=== PATIENT | male | born 1960 | race Caucasian/White ===

== ENCOUNTER → 2019-07-09 13:28 | Outpatient (CLI) | payer BC, SELFPAY ==
[2019-07-09 14:38] LABS: Basophils # 0.1 K/mm3 (0-0.2); Basophils % 0.7 % (0.1-2.0); Eosinophils # 0.2 K/mm3 (0.0-0.4); Eosinophils % 1.6 % (0.1-12.0); Hemoglobin 15.7 g/dL (14.1-18.0); Lymphocytes # 2.2 K/mm3 (0.7-4.5); Lymphocytes % 23.5 % (10-50); Mean Corpuscular HGB Conc 30.7 g/dL (31.8-35.4); Mean Corpuscular Hemoglobin 30.2 pg (27.0-31.2); Mean Corpuscular Volume 98.1 fl (80-94); Mean Platelet Volume 9.5 fl (7.4-10.4); Monocytes # 0.6 K/mm3 (0.1-1.0); Monocytes % 6.5 % (1.7-9.3); Neutrophils # 6.4 K/mm3 (1.8-7.8); Neutrophils % 67.6 % (37.0-80.0); Platelet Count 317 K/mm3 (142-424); Red Blood Count 5.19 M/mm3 (4.60-6.20); Red Cell Distribution Width 14.1 % (11.5-17.5); White Blood Count 9.5 K/mm3 (4.8-10.8)
[2019-07-09 15:09] LABS: Alanine Aminotransferase 31 U/L (12-78); Albumin/Globulin Ratio 1.2 (1.1-1.8); Alkaline Phosphatase 96 U/L (46-116); Anion Gap 12.8 mEq/L (5-15); Aspartate Amino Transferase 20 U/L (15-37); Bilirubin,Total 0.3 mg/dL (0.2-1.0); Blood Urea Nitrogen 28 mg/dL (7-18); Calcium 9.3 mg/dL (8.5-10.1); Carbon Dioxide 29 mmol/L (21.0-32.0); Chloride 106 mmol/L (98-107); Creatinine,Serum 1.08 mg/dL (0.70-1.30); Estimated Glomerular Filt Rate 70 ml/min (>60); Free T4 (Free Thyroxine) 0.91 ng/dl (0.76-1.46); GFR (African American) 85 ML/MIN (>60); Globulin 3.3 gm/dl (1.3-3.2); Glucose 100 mg/dL (74-106); Potassium 4.8 mmoL/L (3.5-5.1); Sodium 143 mmol/L (136-145); Thyroid Stimulating Hormone 0.45 uIU/ml (0.358-3.740); Total Protein,Serum 7.3 gm/dL (6.4-8.2)
== END ==
PROVIDERS: Visit Provider Emergency Medicine
DX: J44.9 Chronic obstructive pulmonary disease, unspecified (principal)
CPT/HCPCS: 80053; 84439; 84443; 85025

== ENCOUNTER → 2019-11-28 12:23 | Outpatient (CLI) | payer BC, SELFPAY ==
--- NOTE | 2019-11-28 12:23 | CT_ITS ---
PROCEDURE: CT LUNG SCREENING CLINICAL INDICATION: personal history nicotine Eighty pack-year smoking history, asymptomatic for lung cancer COMPARISON: No exams were available for comparison TECHNIQUE: The exam was performed on a GE Light Speed [address] scanner using 2.90 mGy CTDI. A low dose helical CT CHEST was performed on a multi-detector scanner. All CT scans at the facility use one or more dose reduction, viz: automated exposure control, ma/kV adjustment per patient size (including targeted exams where dose is matched to indication, i.e. head), or iterative reconstruction technique. The LDCT was performed in a facility that meets the criteria for the screening program. Data regarding this exam was submitted to ACR which is an approved registry. The order for this exam indicates that it came as a result of a lung cancer screening counseling shard decision-making visit that included all the elements required of such a visit including smoking cessation. The radiologist interpreting this exam meets the [facility] criteria for the LDCT lung cancer screening program. The exam is reported using the Lung-RADS classification scale and reported to the ACR registry. NOTE: This study was performed for the specific purposes of lung cancer screening and is not an alternative to diagnostic chest CT. RADIATION DOSE: CTDI vol(CT dose Index-volume) = 2.90mG DLP (Dose Length Product) = 112.81 mGcm FINDINGS: COPD with centrilobular emphysema. Noncalcified 4 mm nodule superior segment right lower lobe image 47 series 4. There are few calcified granulomas. There are some scattered reticular opacities which are nonspecific subpleural 3 mm nodule noted left upper lobe image 31, left apex image 17, left upper lobe posteriorly at 4 mm image 19, 3 mm subpleural nodule left upper lobe image 32 OTHER FINDINGS: Coronary artery calcifications. Scattered small mediastinal lymph nodes. Exophytic isodense to the upper pole left kidney at 2.3 cm and may be due to a cyst. IMPRESSION: Lung rads category 2 benign. Recommend annual LDCT. Dictated by: Bairon Mora MD 12/01/2019 10:47 Electronically signed by Bairon Mora MD in [place] 12/01/2019 10:47
== END ==
PROVIDERS: PCP Emergency Medicine; Visit Provider Physician Assistant
DX: Z87.891 Personal history of nicotine dependence (principal); Z12.2 Encounter for screening for malignant neoplasm of respiratory organs

== ENCOUNTER → 2020-01-20 11:10 | Outpatient (CLI) | payer BC, SELFPAY ==
[2020-01-20 11:39] LABS: Basophils # 0.1 K/mm3 (0-0.2); Basophils % 0.8 % (0.1-2.0); Eosinophils # 0.2 K/mm3 (0.0-0.4); Hemoglobin 16.7 g/dL (14.1-18.0); Lymphocytes # 2.3 K/mm3 (0.7-4.5); Lymphocytes % 23.9 % (10-50); Mean Corpuscular HGB Conc 32.9 g/dL (31.8-35.4); Mean Corpuscular Hemoglobin 31.6 pg (27.0-31.2); Mean Corpuscular Volume 96.1 fl (80-94); Mean Platelet Volume 8.3 fl (7.4-10.4); Monocytes # 0.4 K/mm3 (0.1-1.0); Monocytes % 4.2 % (1.7-9.3); Neutrophils # 6.7 K/mm3 (1.8-7.8); Neutrophils % 69.1 % (37.0-80.0); Platelet Count 294 K/mm3 (142-424); Red Cell Distribution Width 13.5 % (11.5-17.5); White Blood Count 9.7 K/mm3 (4.8-10.8)
[2020-01-20 12:03] LABS: Troponin I < 0.01 ng/ml (0.00-0.034)
[2020-01-20 13:20] LABS: Anion Gap 14.5 mEq/L (5-15); Blood Urea Nitrogen 21 mg/dl (9-20); Calcium 9.7 mg/dl (8.4-10.2); Carbon Dioxide 28 mmol/L (22.0-30.0); Chloride 99 mmol/L (98-107); Estimated Glomerular Filt Rate 87 ml/min (>60); GFR (African American) 105 ML/MIN (>60); Glucose 101 mg/dl (74-100); Potassium 4.5 mmoL/L (3.5-5.1); Sodium 137 mmol/L (136-145)
== END ==
PROVIDERS: Visit Provider Nurse Practitioner Family
DX: I20.9 Angina pectoris, unspecified (principal); F17.200 Nicotine dependence, unspecified, uncomplicated
CPT/HCPCS: 36415; 80048; 84484; 85025

== ENCOUNTER 2020-01-28 08:54 | Day surgery (SDC) | payer BC, SELFPAY ==
[2020-01-28] VITALS (12 sets, daily range): BP systolic 110–187; BP diastolic 57–98; PULSE 67–92; RESP 16–20; TEMP 36.7; O2SAT 95–100; BMI 29.9
--- NOTE | 2020-01-28 | IR_ITS ---
APPROVED REPORT Patient Location: [facility] Economist: ANA MARÍA Anderson RT (R) PROCEDURES Left heart catheterization Left ventriculogram Selective coronary angiogram Drug-eluting stent deployment to the circumflex artery INDICATION Coronary artery disease, Class III angina pectoris Informed consent was obtained prior to the procedure. COMPLICATIONS NONE Estimated Blood Loss: LESS THAN 10 ML TECHNIQUE One percent lidocaine used to anesthetize the right anterior aspect of the wrist. The right radial artery was accessed via the Seldinger technique. A 6 Yemeni sheath was placed in the right radial artery. 2.5 mg of verapamil, 800 mcg of nitroglycerin, 1mg Lidocaine and 5000 U Heparin were given through the arterial sheath. The trap catheter was also used to perform left heart catheterization, left ventriculogram and selective coronary angiogram. At the end the diagnostic angiogram therapeutic heparin was administered. And I Jazmyn left guide catheter was used to intubate the left main artery and a BMW wire was used to traverse the stenosis in the circumflex artery. A 2 mm x 18 mm resolute claude stent was deployed at 18 arabella reducing the severe stenosis to 0%. JOSE-3 flow was present before and after the procedure. At the end the procedure the apparatus was removed the sheath was removed and hemostasis was achieved using TR banding patient was transferred to the postop holding her in stable addition ANGIOGRAPHIC RESULTS The left main artery Normal The left anterior descending artery Has proximal and mid vessel mild 10% luminal irregularities The circumflex artery Is nondominant and has a mid vessel greater than 70% stenosis The right coronary artery Is dominant and has mild 10 to 20% luminal irregularities The CID ventriculogram reveals Normal 65% The left ventricular end-diastolic pressure 20 mmHg IMPRESSION Severe single-vessel coronary disease as described above Successful stenting the circumflex artery severe disease reduced to 0% whole dilating stent Normal ejection fraction Mildly elevated LVEDP PLAN 1. Dual antiplatelet therapy 2. Avoidance of tobacco products 3. Cardiac rehabilitation 4. LDL less than 55 5. Risk factor modification Electronically signed by : Silverio Koenig, 01/28/2020 12:49:01
[2020-01-28 09:29] LABS: Basophils # 0.2 K/mm3 (0-0.2); Basophils % 1.8 % (0.1-2.0); Eosinophils # 0.3 K/mm3 (0.0-0.4); Hematocrit 52.4 % (42.0-52.0); Hemoglobin 17.3 g/dL (14.1-18.0); Lymphocytes # 2.3 K/mm3 (0.7-4.5); Lymphocytes % 21.8 % (10-50); Mean Corpuscular HGB Conc 33.1 g/dL (31.8-35.4); Mean Corpuscular Hemoglobin 31.5 pg (27.0-31.2); Mean Corpuscular Volume 95.4 fl (80-94); Mean Platelet Volume 8.4 fl (7.4-10.4); Monocytes # 0.5 K/mm3 (0.1-1.0); Monocytes % 4.5 % (1.7-9.3); Neutrophils # 7.1 K/mm3 (1.8-7.8); Neutrophils % 68.8 % (37.0-80.0); Platelet Count 319 K/mm3 (142-424); Red Blood Count 5.49 M/mm3 (4.60-6.20); Red Cell Distribution Width 13.5 % (11.5-17.5); White Blood Count 10.3 K/mm3 (4.8-10.8)
[2020-01-28 09:36] LABS: Anion Gap 11.4 mEq/L (5-15); Blood Urea Nitrogen 24 mg/dl (9-20); Calcium 9.8 mg/dl (8.4-10.2); Carbon Dioxide 29 mmol/L (22.0-30.0); Chloride 101 mmol/L (98-107); Creatinine Clearance Estimated 141 mL/min (50-200); Estimated Glomerular Filt Rate 87 ml/min (>60); GFR (African American) 105 ML/MIN (>60); Glucose 114 mg/dl (74-100); Potassium 4.4 mmoL/L (3.5-5.1); Sodium 137 mmol/L (136-145)
[2020-01-28 13:09] LABS: CATHL Activated Clotting Time 394 SEC (74-125)
--- NOTE | 2020-01-28 14:18 | HMH.PHACLD ---
Elton Bob has received discharge medication counseling on the following medications: BRILINTA 90MG BID BISOPROLOL 5MG DAILY LIPITOR 40MG DAILY PATIENT ALREADY TAKES ASPIRIN 81MG AT HOME. NO ACEI/ARB AT THIS TIME PER MD. PATIENT IS TO CONTINUE ALL OTHER HOME MEDICATIONS. PATIENT VERBALIZED UNDERSTANDING AND HAD NO QUESTIONS AT THIS TIME. -JAVI VELEZ, PHARMD
== END 2020-01-28 16:01 | disposition home or self-care (01) ==
LOC: CATHLAB 08:56
PROVIDERS: PCP Physician Assistant; Visit Provider Internal Medicine
DX: I25.118 Atherosclerotic heart disease of native coronary artery with other forms of angina pectoris (principal); I10 Essential (primary) hypertension; Z88.0 Allergy status to penicillin; Z72.0 Tobacco use; J44.9 Chronic obstructive pulmonary disease, unspecified; Z79.899 Other long term (current) drug therapy
CPT/HCPCS: 80048; 85025; 85347; 92928; 93458; 99152; C1725; C1769; C1876; C9600; J1644; Q9967

== ENCOUNTER → 2020-09-28 12:01 | Outpatient (CLI) | payer BC, SELFPAY ==
--- NOTE | 2020-09-28 | CA_ITS ---
APPROVED REPORT Exam: Pharmacologic Technologist: Aure Carias Ht: 6 ft 4 in Wt: 238 lbs BSA: 2.39 m2 HR: 66 bpm BP: 131/80 mmHg Indications: Chest pain Medical History Medications: Amlodipine,,,,, Aspirin,,,,, Gabapentin,,,,, Atorvastatin,,,,, Duoneb,,,,, Ropinirole,,,,, Albuterol,,,,, CloPIdogrel,,,,, BisOPROLOL,,,,, TAdalafil,,,,, Stress Test Details Test: LEXISCAN HR Resting HR: 67 bpm Max Heart Rate (APMHR): 161 bpm Max HR Achieved: 99 bpm Target HR (85% APMHR): 136 bpm % of APMHR: 61 Recovery HR: 81 bpm BP Resting BP: 131.0/80.0 mmHg Max BP: 137.0/76.0 mmHg Recovery BP: 130.0/75.0 mmHg ECG Resting ECG: Normal sinus rhythm Clinical Exercise duration: 04:00 min Highest Stage Achieved: Exercise capacity: 1.0 METs Stress ECG Conclusion Symptoms: Shortness of air, malaise. No chest pain. Arrhythmias/Ectopy: Rare PVC ST-T Changes: No significant changes. Conclusion: Unremarkable Lexiscan stress. Myoview images reported separately. Electronically signed by : Brian Zhu, 09/29/2020 06:30:14
--- NOTE | 2020-09-28 12:10 | NM_ITS ---
APPROVED REPORT Exam: Nuclear Stress Test Indication: chest pain..short of breath..syncope..fatigue Patient Location: Outpatient Stress Tech: Aure Carias [place] Tech:Karina Avila, ARRT, RT (R)(N) Ht: 6 ft 4 in Wt: 250 lbs HR: 66 bpm BP: 131/80 mmHg BSA: 2.44 m2 BMI: 30.4 History: chest pain..short of breath..syncope..fatigue Procedure: Patient received a 0.4 mg of intravenous Lexiscan, resting heart rate 66 bpm, resting blood pressure 131/80 mmHg, with Lexiscan maximum heart rate achived was 93 bpm which is Less than 85 % of the maximum predicted heart rate and blood pressure was 135/77 mmHg. With Lexiscan, patient denied any complaint of chest pain. Electrocardiogram Resting electrocardiogram showed sinus rhythm, with Lexiscan there is less than 1.[address] segment depression noted from the baseline EKG. The EKG portion of the Lexiscan Myoview is nondiagnostic. Cardiac Stress and Resting SPECT Images: Cardiac Stress and Resting SPECT images were obtained using technetium 99m Myoview 31.5 mCi stress and 10.99 mCi at rest. Gated SPECT for analysis of segmental wall motion and calculation of the ejection fraction also done. Cardiac stress and resting SPECT images show uniform myocardial activity without segmental perfusion abnormality, computer derived ejection fraction is 65% with no regional wall motion abnormality, right ventricle is mildly enlarged with normal contractility. Conclusion: 1. The EKG portion of the Lexiscan is nondiagnostic. 2. No scintigraphic evidence of reversible ischemia seen, computer derived ejection fraction is 65% with no regional wall motion abnormality, right ventricle is mildly enlarged with normal contractility. 3. Normal Lexiscan Myoview study. Electronically signed by : Brian Zhu, 09/29/2020 06:48:52
--- NOTE | 2020-09-28 14:07 | HMH.ITSHM ---
Current Home Medications as stated by this patient Elton Bob or support representative. []TADALAFIL ROPINIROLE RANOLAZINE IPRATROPIUM GABAPENTIN CLOPIDOGREL BISOPROLOL ATORVASTATIN ASA AMLODIPINE
== END ==
PROVIDERS: PCP Physician Assistant; Visit Provider Nurse Practitioner Family
DX: R07.89 Other chest pain (principal); R06.02 Shortness of breath; I25.118 Atherosclerotic heart disease of native coronary artery with other forms of angina pectoris; I10 Essential (primary) hypertension; E78.2 Mixed hyperlipidemia; F41.9 Anxiety disorder, unspecified; G25.81 Restless legs syndrome; J44.9 Chronic obstructive pulmonary disease, unspecified; F17.200 Nicotine dependence, unspecified, uncomplicated; N52.9 Male erectile dysfunction, unspecified
CPT/HCPCS: 78452; 93017; A9502; J2785